=== PATIENT | female | born 1945 | race Caucasian/White ===

== ENCOUNTER 2024-03-01 04:35 | Day surgery (SDC) | payer OTHER, BC ==
[2024-02-25 10:57] VITALS: BMI 22.4
[2024-03-01 10:58] VITALS: TEMP 98
[2024-03-01 11:54] VITALS: BP 131/60; PULSE 65; RESP 14
== END 2024-03-01 11:50 | disposition home or self-care (01) ==
LOC: JASU-ENDO 04:35
PROVIDERS: ATTEND Internal Medicine Gastroenterology
PROC: 0DB98ZX Excision of Duodenum, Via Natural or Artificial Opening Endoscopic, Diagnostic (ICD-10-PCS; 2024-03-01)
PROC: 0DB78ZX Excision of Stomach, Pylorus, Via Natural or Artificial Opening Endoscopic, Diagnostic (ICD-10-PCS; 2024-03-01)
PROC: 0DB68ZX Excision of Stomach, Via Natural or Artificial Opening Endoscopic, Diagnostic (ICD-10-PCS; 2024-03-01)
PROC: 0DJD8ZZ Inspection of Lower Intestinal Tract, Via Natural or Artificial Opening Endoscopic (ICD-10-PCS; principal; 2024-03-01 10:30)
DX: Z12.11 Encounter for screening for malignant neoplasm of colon (principal); K57.30 Diverticulosis of large intestine without perforation or abscess without bleeding; K29.40 Chronic atrophic gastritis without bleeding; K92.1 Melena; Z86.010 Personal history of colon polyps; Z80.0 Family history of malignant neoplasm of digestive organs
CPT/HCPCS: 43239; G0105; 88305-TC; 88342-TC